=== PATIENT | male | born 1985 | race African-American/Black ===

== ENCOUNTER 2020-06-29 11:32 | Emergency (ER) | payer SELFPAY ==
[~2020-06-29] VITALS: Ht 175.3 cm; Wt 68.1 kg
[2020-06-29 12:52] VITALS: BP 137/79
--- NOTE | 2020-06-29 13:15 | PHYS DOC ---
Past Medical History Past Medical History: No Pertinent History ([employer]) Past Surgical History: No Surgical History ([employer]) Smoking Status: Current Every Day Smoker Additional Information: SMOKES 1 BLACK & MILD A DAY Alcohol Use: Rarely (MITZY LEWIS APRN) General Adult EDM: Chief Complaint: BLOOD IN URINE HPI: HPI: Patient is a 34 year old male who presents with left ear pain for the last week. Patient also noticed blood in his urine yesterday and some burning with urination. He states he does not have any blood in his urine today. He denies any penile discharge. He states in the past couple years he has been treated for chlamydia but never finished antibiotics and his partner never finished antibiotics either because he felt better. Patient educated that you need to finish all antibiotics. Patient denies groin pain, scrotal pain, testicular pain, abdominal pain, back pain, nausea, vomiting, diarrhea, fever, headache, dizziness, penile discharge. Denies any pain at this time. ([employer]) Review of Systems: Review of Systems: Constitutional: Denies fever or chills. [] Eyes: Denies change in visual acuity. [] HENT: Denies nasal congestion or sore throat. + Left ear pain [] Respiratory: Denies cough or shortness of breath. [] Cardiovascular: Denies chest pain or edema. [] GI: Denies abdominal pain, nausea, vomiting, bloody stools or diarrhea. [] : Denies dysuria. + Blood in urine, + burning with urination yesterday only. [] Musculoskeletal: Denies back pain or joint pain. [] Integument: Denies rash. [] Neurologic: Denies headache, focal weakness or sensory changes. [] Endocrine: Denies polyuria or polydipsia. [] Lymphatic: Denies swollen glands. [] Psychiatric: Denies depression or anxiety. [] ([employer]) Heart Score: Risk Factors: Risk Factors: DM, Current or recent (<one month) smoker, HTN, HLP, family history of CAD, obesity. Risk Scores: Score 0 - 3: 2.5% MACE over next 6 weeks - Discharge Home Score 4 - 6: 20.3% MACE over next 6 weeks - Admit for Clinical Observation Score 7 - 10: 72.7% MACE over next 6 weeks - Early Invasive Strategies (MITZY LEWIS APRN) Allergies: Allergies: Allergies Coded Allergies Type Severity Reaction Last Updated Verified No Known Drug Allergies 06/29/20 No (MITZY LEWIS APRN) Physical Exam: PE: Constitutional: Well developed, well nourished, no acute distress, non-toxic appearance. [] HENT: Normocephalic, atraumatic, bilateral external ears normal, oropharynx moist, no oral exudates, nose normal. Tenderness with examination of the left ear. Eardrum is foggy and pink in color. [] Eyes: PERRLA, EOMI, conjunctiva normal, no discharge. [] Neck: Normal range of motion, no tenderness, supple, no stridor. [] Cardiovascular:Heart rate regular rhythm, no murmur [] Lungs & Thorax: Bilateral breath sounds clear to auscultation [] Abdomen: Bowel sounds normal, soft, no tenderness, no masses, no pulsatile masses. [] Skin: Warm, dry, no erythema, no rash. [] Back: No tenderness, no CVA tenderness. [] Extremities: No tenderness, no cyanosis, no clubbing, ROM intact, no edema. [] Neurologic: Alert and oriented X 3, normal motor function, normal sensory function, no focal deficits noted. [] Psychologic: Affect normal, judgement normal, mood normal. [] (MITZY LEWIS APRN) Current Patient Data: Vital Signs: Vital Signs Date Time Temp Pulse Resp B/P (MAP) Pulse Ox O2 Delivery O2 Flow Rate FiO2 06/29/20 12:52 97.8 76 15 137/79 (98) 100 Room Air 97.8 (MITZY LEWIS APRN) EKG: EKG: [] (MITZY LEWIS APRN) Radiology/Procedures: Radiology/Procedures: [] (MITZY LEWIS APRN) Course & Med Decision Making: Course & Med Decision Making Pertinent Labs and Imaging studies reviewed. (See chart for details) Abdomen soft and nontender. Alert and oriented x4. Ambulatory with steady gait. Skin pink warm and dry. Left eardrum is boggy and pink in color. There seem to be tenderness with examination of the left ear. Lungs are clear to auscultation all lobes. Vital signs within normal limits. He denies any pain. Afebrile. Patient looks to have urinary tract infection. I will send off the urine for chlamydia and gonorrhea. Patient will need to follow-up with a urologist. I will treat the patient for chlamydia and Gonorrhea here in the ED. [] (MITZY LEWIS APRN) Dragon Disclaimer: Dragon Disclaimer: This electronic medical record was generated, in whole or in part, using a voice recognition dictation system. (MITZY LEWIS APRN) Departure Departure Impression: Primary Impression: Urinary symptom or sign Additional Impression: Possible exposure to STD Disposition: 01 DC HOME SELF CARE/HOMELESS Condition: STABLE Referrals: NO PCP (PCP) Patient Instructions: Sexually Transmitted Disease, Urinary Tract Infection Additional Instructions: Follow-up with a urologist at urology. Drink plenty of fluids. I have sent off your urine for a chlamydia and gonorrhea test. The results will come back in 48 hours. Attending Signature Attending Signature I have reviewed the PA/BUTTON SEWER HAND's note and plan of care. I was available for consultation as needed during the patient's visit in the emergency department. I agree with the clinical impression, plan, and disposition. (TINY SANCHEZ DO) MITZY LEWIS APRN Jun 29, 2020 13:15 TINY SANCHEZ DO Jun 30, 2020 18:52
[2020-06-29 13:35] LABS: BILIRUBIN,URINE NEGATIVE (NEG); COLOR,URINE YELLOW; NITRITE,URINE NEGATIVE (NEG); PROTEIN,URINE 30 mg/dL (NEG-TRACE)
[2020-06-29 13:44] LABS: CLARITY,URINE HAZY
[2020-06-29 13:46] LABS: BACTERIA,URINE 0 /HPF (0-FEW)
[2020-06-29 13:47] LABS: RBC,URINE 0 /HPF (0-2)
[2020-06-29] MEDS ORDERED: ONDANSETRON ODT 4 MG TAB.RAPDIS. PO ONE (14:45)
[2020-06-29] MEDS ORDERED: AZITHROMYCIN 250 MG TABLET. PO ONE (14:45)
[2020-06-29] MEDS ORDERED: cefTRIAXone IM 250 MG VIAL IM ONE (14:45)
== END 2020-06-29 15:00 | disposition home or self-care (01) ==
LOC: ER 11:32
DX: R31.9 Hematuria, unspecified (principal); H92.02 Otalgia, left ear; F17.210 Nicotine dependence, cigarettes, uncomplicated
CPT/HCPCS: 81001; 87086; 87491; 87591; 96372; 99283; J0696